=== PATIENT | female | born 1955 | race Asian ===

== ENCOUNTER → 2017-08-12 | Outpatient (CLI) | payer OTHER | END | disposition home or self-care (01) | LOC: US 07:29 | PROC: BG44ZZZ Ultrasonography of Thyroid Gland (ICD-10-PCS; principal; 2017-08-12) | PROC: BW40ZZZ Ultrasonography of Abdomen (ICD-10-PCS; 2017-08-12) | DX: M25.511 Pain in right shoulder (principal); R10.9 Unspecified abdominal pain; E04.1 Nontoxic single thyroid nodule | CPT/HCPCS: Q0092 ==

== ENCOUNTER → 2018-05-25 | Outpatient (CLI) | payer OTHER ==
[2018-05-25 11:10] LABS: BASOPHIL % 0.4 % (0-2); PLATELET COUNT 328 x10^3mcL (130-400); RED CELL DISTRIBUTION WIDTH 12.6 % (11.5-14.5)
[2018-05-25 12:06] LABS: ALKALINE PHOSPHATASE 70 U/L (46-116); ALT/SGPT 55 U/L (14-59); AST/SGOT 27 U/L (15-37); BILIRUBIN TOTAL 0.6 mg/dL (0.20-1.00); CALCIUM 9.5 mg/dL (8.5-10.1); CARBON DIOXIDE 30.1 mmol/L (21-32); CHLORIDE SERUM 98 mmol/L (98-107); CREATININE SERUM 0.7 mg/dL (0.6-1.0); GFR1 > 60 mL/min; GLUCOSE SERUM 126 mg/dL (74-106); HDL CHOLESTEROL 48 mg/dL (40-60); POTASSIUM SERUM 3.9 mmol/L (3.5-5.1); SODIUM SERUM 137 mmol/L (136-145); TOTAL PROTEIN, SERUM 8.1 g/dL (6.4-8.2)
[2018-05-25 12:19] LABS: CHOLESTEROL 291 mg/dL (<200); CHOLESTEROL/HDL RATIO 6.1; TRIGLYCERIDES 559 mg/dL (<150)
[2018-05-25 14:03] LABS: microscopic required? NO
[2018-05-25 14:09] LABS: urine erythrocyte NEGATIVE (NEGATIVE)
[2018-05-26 13:18] LABS: microalbumin:creatinine ratio 11.8 (0.0-30.0)
== END | disposition home or self-care (01) ==
LOC: LB 09:42
DX: E11.9 Type 2 diabetes mellitus without complications (principal)

== ENCOUNTER 2018-08-03 06:31 | Emergency (ER) | payer OTHER ==
[~2018-08-03] VITALS: Ht 152.4 cm; Wt 54.4 kg
[2018-08-03 06:34] VITALS: Ht 152.4 cm; Wt 54.4 kg
[2018-08-03 07:26] VITALS: BP 144/85
== END 2018-08-03 07:26 | disposition home or self-care (01) ==
LOC: ED 06:31
DX: S63.501A Unspecified sprain of right wrist, initial encounter (principal); S80.02XA Contusion of left knee, initial encounter; S80.01XA Contusion of right knee, initial encounter; W01.0XXA Fall on same level from slipping, tripping and stumbling without subsequent striking against object, initial encounter; Y93.89 Activity, other specified; Y92.89 Other specified places as the place of occurrence of the external cause; Y99.8 Other external cause status

== ENCOUNTER → 2019-03-31 | Outpatient (CLI) | payer OTHER ==
[2019-03-31 09:26] LABS: microscopic required? NO
[2019-03-31 09:34] LABS: BASOPHIL % 1.4 % (0-2); PLATELET COUNT 328 x10^3mcL (130-400); RED CELL DISTRIBUTION WIDTH 12.4 % (11.5-14.5)
[2019-03-31 09:37] LABS: UA SPECIFIC GRAVITY 1.015 (1.005-1.035); urine erythrocyte NEGATIVE (NEGATIVE)
[2019-03-31 10:06] LABS: ALBUMIN 4.2 g/dL (3.4-5.0); ALKALINE PHOSPHATASE 77 U/L (46-116); ALT/SGPT 39 U/L (14-59); AST/SGOT 23 U/L (15-37); BILIRUBIN TOTAL 0.6 mg/dL (0.20-1.00); CALCIUM 9.9 mg/dL (8.5-10.1); CHLORIDE SERUM 102 mmol/L (98-107); CREATININE SERUM 0.8 mg/dL (0.6-1.0); GFR1 > 60 mL/min; GLUCOSE SERUM 134 mg/dL (74-106); HDL CHOLESTEROL 52 mg/dL (40-60); POTASSIUM SERUM 4.3 mmol/L (3.5-5.1); SODIUM SERUM 140 mmol/L (136-145); TOTAL PROTEIN, SERUM 8.2 g/dL (6.4-8.2)
[2019-03-31 10:08] LABS: CHOLESTEROL 257 mg/dL (<200); CHOLESTEROL/HDL RATIO 4.9; TRIGLYCERIDES 320 mg/dL (<150)
[2019-04-01 10:05] LABS: microalbumin:creatinine ratio 10.4 (0.0-30.0)
== END | disposition home or self-care (01) ==
LOC: US 07:49
PROC: BW40ZZZ Ultrasonography of Abdomen (ICD-10-PCS; principal; 2019-03-31)
PROC: BG44ZZZ Ultrasonography of Thyroid Gland (ICD-10-PCS; 2019-03-31)
PROC: BH02ZZZ Plain Radiography of Bilateral Breasts (ICD-10-PCS; 2019-03-31)
DX: R10.9 Unspecified abdominal pain (principal); E04.1 Nontoxic single thyroid nodule; E11.9 Type 2 diabetes mellitus without complications; E78.5 Hyperlipidemia, unspecified; Z12.31 Encounter for screening mammogram for malignant neoplasm of breast
CPT/HCPCS: 77067

== ENCOUNTER → 2020-12-08 | Outpatient (CLI) | payer OTHER ==
[2020-12-08 10:40] LABS: microscopic required? NO
[2020-12-08 10:50] LABS: BASOPHIL % 1.1 % (0.2-1.3); PLATELET COUNT 365 x10^3mcL (179-408); RED CELL DISTRIBUTION WIDTH 13.1 % (12.3-17.7)
[2020-12-08 10:51] LABS: urine erythrocyte NEGATIVE (NEGATIVE)
[2020-12-08 11:07] LABS: ALBUMIN 4.1 g/dL (3.4-5.0); ALKALINE PHOSPHATASE 75 U/L (46-116); ALT/SGPT 29 U/L (14-59); AST/SGOT 31 U/L (15-37); BILIRUBIN TOTAL 0.7 mg/dL (0.20-1.00); CALCIUM 9.5 mg/dL (8.5-10.1); CARBON DIOXIDE 31.9 mmol/L (21-32); CHLORIDE SERUM 103 mmol/L (98-107); CREATININE SERUM 0.8 mg/dL (0.6-1.0); GFR1 > 60 mL/min; GLUCOSE SERUM 105 mg/dL (74-106); POTASSIUM SERUM 4.4 mmol/L (3.5-5.1); SODIUM SERUM 142 mmol/L (136-145); TOTAL PROTEIN, SERUM 8.1 g/dL (6.4-8.2)
[2020-12-08 11:15] LABS: CHOLESTEROL 270 mg/dL (<200); CHOLESTEROL/HDL RATIO 4.4; HDL CHOLESTEROL 62 mg/dL (40-60); TRIGLYCERIDES 242 mg/dL (<150)
== END | disposition home or self-care (01) ==
LOC: MA 08:42 → US 09:00 → MA 09:00
PROC: BH02ZZZ Plain Radiography of Bilateral Breasts (ICD-10-PCS; principal; 2020-12-08)
PROC: BG44ZZZ Ultrasonography of Thyroid Gland (ICD-10-PCS; 2020-12-08)
PROC: BW40ZZZ Ultrasonography of Abdomen (ICD-10-PCS; 2020-12-08)
DX: E11.9 Type 2 diabetes mellitus without complications (principal); E78.5 Hyperlipidemia, unspecified; M19.90 Unspecified osteoarthritis, unspecified site; Z12.31 Encounter for screening mammogram for malignant neoplasm of breast; E04.1 Nontoxic single thyroid nodule; R10.9 Unspecified abdominal pain
CPT/HCPCS: 77067